=== PATIENT | female | born 1930 | race Caucasian/White ===

== ENCOUNTER 2018-05-31 08:12 | Inpatient (IN) | payer MEDICARE, OTHER ==
[~2018-05-31] VITALS: Ht 167.6 cm; Wt 80.7 kg
[~2018-05-31 08:12] MED LIST: CEPH500 PO; DOCU100 PO; FURO20 PO; Humalog100 UNIT/1 SC; Humulin N100 UNIT/1 SC; Humulin N100 UNIT/1 SQ; INSLIS75I SC; Norco 5-325 Ta1 EACH PO; Novolog100 UNIT/1 SC; POTCHL10ER PO; TRAM50 PO; Tylenol325 MG PO; VENL75ER PO; VERA180ER PO; VERA180ERB PO; WARF2.5 PO
[2018-05-31 08:48] LABS: PCO2 Arterial 37.9 mmHg (35-45); PO2 Arterial 50.9 mmHg (80-100); pH Blood Arterial 7.42 (7.35-7.45)
[2018-05-31 08:56] LABS: BASOPHILS ABSOLUTE AUTO 0.04 K/mm3 (0.00-0.23); BASOPHILS PERCENT AUTO 1 % (0-2); EOSINOPHILS ABSOLUTE AUTO 0.05 K/mm3 (0.00-0.68); EOSINOPHILS PERCENT AUTO 1 % (0-6); Hemoglobin 13.9 g/dL (11.5-16.0); IMMATURE GRAN ABSOLUTE AUTO 0.01 K/mm3 (0.00-0.10); IMMATURE GRAN PERCENT AUTO 0 % (0-1); LYMPHOCYTES ABSOLUTE AUTO 1.16 K/mm3 (0.84-5.20); LYMPHOCYTES PERCENT AUTO 16 % (21-46); MONOCYTES ABSOLUTE AUTO 0.46 K/mm3 (0.16-1.47); MONOCYTES PERCENT AUTO 6 % (4-13); Mean Corpuscular HGB 30.9 pg (26.0-34.0); Mean Corpuscular HGB Conc 32.3 g/dL (31.5-36.5); Mean Corpuscular Volume 96 fL (80-100); Mean Platelet Volume 11.5 fL (9.1-12.4); NEUTROPHILS ABSOLUTE AUTO 5.58 K/mm3 (1.96-9.15); NEUTROPHILS PERCENT AUTO 77 % (41-73); Platelet Count 185 K/mm3 (150-400); RDW Coefficient Variation 12.8 % (11.7-14.2); RDW Standard Deviation 45.1 fL (35.1-46.3)
[2018-05-31 09:13] LABS: Albumin, Blood 3.1 g/dL (3.4-5.0); Albumin/Globulin Ratio 0.8 (0.8-1.8); Bilirubin, Total 0.6 mg/dL (0.1-1.0); Calcium, Blood 8.2 mg/dL (8.5-10.1); Creatinine, Blood 1.03 mg/dL (0.40-1.00); Globulin, Blood 4.1 g/dL (2.2-4.0); Potassium, Blood 4.3 mmol/L (3.5-5.5); Total Protein, Blood 7.2 g/dL (6.4-8.2)
[2018-05-31 09:19] LABS: Beta-hydroxybutyrate 5.3 mg/dL (0.2-2.8)
[2018-05-31 15:20] LABS: Appearance, Urine Clear (Clear); Bilirubin, Urine Neg (Neg); Blood, Urine 1+ (Neg); Color, Urine Yellow (P-Yellow); Glucose Qualitative, Urine 2+ (Neg); Ketones, Urine Neg (Neg); Leukocyte Esterase, Urine Neg (Neg); Nitrite, Urine Neg (Neg); Protein, Urine Neg (Neg); Urobilinogen, Urine NORM (Normal)
[2018-05-31 15:55] LABS: Bacteria Rare /hpf; Red Blood Cells, Urine 0-2 /hpf (0-2); Squamous Epithelial Cells Rare /hpf (Few); White Blood Cells, Urine 0-2 /hpf (0-5)
[2018-06-01 03:32] LABS: BASOPHILS ABSOLUTE AUTO 0.03 K/mm3 (0.00-0.23); BASOPHILS PERCENT AUTO 0 % (0-2); EOSINOPHILS ABSOLUTE AUTO 0.06 K/mm3 (0.00-0.68); EOSINOPHILS PERCENT AUTO 1 % (0-6); Hematocrit 38.7 % (33.0-51.0); Hemoglobin 12.9 g/dL (11.5-16.0); IMMATURE GRAN ABSOLUTE AUTO 0.02 K/mm3 (0.00-0.10); IMMATURE GRAN PERCENT AUTO 0 % (0-1); LYMPHOCYTES ABSOLUTE AUTO 1.12 K/mm3 (0.84-5.20); LYMPHOCYTES PERCENT AUTO 15 % (21-46); MONOCYTES ABSOLUTE AUTO 0.56 K/mm3 (0.16-1.47); MONOCYTES PERCENT AUTO 7 % (4-13); Mean Corpuscular HGB Conc 33.3 g/dL (31.5-36.5); Mean Corpuscular Volume 93 fL (80-100); Mean Platelet Volume 11.1 fL (9.1-12.4); NEUTROPHILS ABSOLUTE AUTO 5.81 K/mm3 (1.96-9.15); NEUTROPHILS PERCENT AUTO 76 % (41-73); Platelet Count 174 K/mm3 (150-400); RDW Coefficient Variation 12.8 % (11.7-14.2); RDW Standard Deviation 43.8 fL (35.1-46.3); Red Blood Cell Count 4.16 M/mm3 (3.80-5.20)
[2018-06-01 03:44] LABS: International Normalized Ratio 3.67; Prothrombin Time Results 35.1 Sec (9.7-11.5)
[2018-06-01 03:51] LABS: Magnesium, Blood 1.8 mg/dL (1.6-2.4)
[2018-06-01 03:52] LABS: Bun/Creatinine Ratio 32.7 (12.0-20.0); Calcium, Blood 7.8 mg/dL (8.5-10.1); Creatinine, Blood 1.1 mg/dL (0.40-1.00); Potassium, Blood 3.3 mmol/L (3.5-5.5)
[2018-06-01 08:55] LABS: CHOL/HDL RATIO 3.2; Cholesterol 146 mg/dL (50-200); HDL Cholesterol 46 mg/dL (>39); LDL/HDL RATIO 1.9; Low Density Lipoprotein Chol 86 mg/dL (0-110); Triglycerides 69 mg/dL (30-160); Very Low Density Lipoprot Chol 13 mg/dL (6-32)
[2018-06-02 04:44] LABS: International Normalized Ratio 3.55
[2018-06-02 04:46] LABS: Magnesium, Blood 1.7 mg/dL (1.6-2.4)
[2018-06-02 04:47] LABS: Bun/Creatinine Ratio 27.3 (12.0-20.0); Creatinine, Blood 0.99 mg/dL (0.40-1.00); Potassium, Blood 3.4 mmol/L (3.5-5.5)
[2018-06-02 12:53] LABS: Glucose, Blood 479 mg/dL (70-99)
[2018-06-02] MEDS ORDERED: LISI20 PO (15:27)
[2018-06-02] MEDS ORDERED: Milk Of Ma400 MG/5 M PO (15:28)
[2018-06-02] MEDS ORDERED: METO25ER PO (15:30)
[2018-06-02] MEDS ORDERED: SPIR25 PO (15:31)
[2018-06-02] MEDS ORDERED: POTCHL20ER PO (15:31)
[2018-06-02] MEDS ORDERED: TORSE20 PO (15:32)
== END 2018-06-02 16:07 | disposition home or self-care (01) | DRG 291 ==
LOC: ER 08:12 → ICUW 10:04 → ICUE 10:04 → PCU 10:04 → ICUE 10:53 → PCU 06-01 00:50
PROVIDERS: Internal Medicine; Physician Assistant
DX: I11.0 Hypertensive heart disease with heart failure (principal); J96.01 Acute respiratory failure with hypoxia; I16.1 Hypertensive emergency; I50.21 Acute systolic (congestive) heart failure; I42.9 Cardiomyopathy, unspecified; G30.9 Alzheimer's disease, unspecified; F02.80 Dementia in other diseases classified elsewhere, unspecified severity, without behavioral disturbance, psychotic disturbance, mood disturbance, and anxiety; E78.5 Hyperlipidemia, unspecified; M81.0 Age-related osteoporosis without current pathological fracture; I48.0 Paroxysmal atrial fibrillation; Z95.0 Presence of cardiac pacemaker; Z66 Do not resuscitate; I49.5 Sick sinus syndrome
CPT/HCPCS: 36415; 36600; 51702; 71045; 80048; 80053; 80061; 81001; 82010; 82803; 82947; 83036; 83735; 83880; 84443; 84484; 85025; 85610; 93005; 93010; 93280; 93306; 94640; 96365; 96366; 96375; 97161; 97530; 99285-25; G8978; G8979; G8980; J1815; J1817; J3475